=== PATIENT | male | born 1950 | race Caucasian/White ===

== ENCOUNTER 2016-07-13 16:32 | Inpatient (IN) | payer BC ==
[~2016-07-13] VITALS: Ht 162.6 cm; Wt 129.9 kg
--- NOTE | ~2016-07-13 | HEMODYNAMI ---
PATIENT:CLAUDIA CANNON MEDICAL RECORD: [id number] : 54 [id number] ADMISSION DATE: 07/13/16 Generatedon:07/14/201616:20 Patient name: CLAUDIA CANNON Patient #: [id number] SSN: DO B: 1950 Date of study: 07/14/2016 Page: Of Hemodynamic Procedure Report Patient Data Patient Demographics Procedure consent was obtained First Name: CLAUDIA Gender: Male Last Name: KASSANDRA : 1950 [facility] Initial: MONTY Age: 65 year(s) Patient #: [id number] Race: Unknown Additional ID: [id number] Contact details [address]: [address] [place] [address] State: [place] City: [place] Zip code: [address] Past Medical History Allergies Allergen Reaction Date Comments Reported Other allergy 07/14/2016 cipro Admission Admission Data Admission Date: 07/13/2016 Admission Time: 18:54 Room #: [facility] Lab Results Lab Result Date: 07/14/2016 Lab Result Time: 0:00 Biochemistry Name Units Result Min Max BUN mg/dl 17 --(---*)-- 7 18 Creatinine mg/dl 1.1 --(--*-)-- 0.6 1.3 CBC Name Units Result Min Max Hemoglobin g/dl 13.7 --(*---)-- 13.5 17.5 Procedure Procedure Types Cath Procedure Diagnostic Procedure [facility] w/Coronaries PCI Procedure Coronary Stent Initial Miscellaneous Procedures Moderate Sedation up to 30 minutes Procedure Description Procedure Date Procedure Date: 07/14/2016 Procedure Start Time: 15:56 Procedure End Time: 16:18 Procedure Staff Name Function Favio Simeon RT Scrub Lokesh Mas RT Monitor Douglas Troy MD Performing Physician Martha Garrett RN Nurse Estela Butcher RT Monitor Procedure Data Cath Procedure Fluoroscopy Diagnostic fluoroscopy Total fluoroscopy Time: 4.6 time: 4.6 min min Diagnostic fluoroscopy Total fluoroscopy dose: 931 dose: 931 mGy mGy Contrast Material Contrast Material Type Amount (ml) Isovue 300 114 Entry Location Entry Primary Successful Side Size Upsize Upsize Entry Closure Rodriguez ccessful Closure Location (Fr) 1 (Fr) 2 (Fr) Remarks Device Remarks Radial Right 6 Fr Mechanical artery Short Compression Estimated blood loss: 10 ml Diagnostic catheters Device Type Used For End Catheter Placement Cordis RBL-A catheter (NO LV Angiography CHARGE) Cordis RBL-A catheter (NO Left Coronary CHARGE) Angiography Cordis RBL-A catheter (NO Right Coronary CHARGE) Angiography Procedure Complications No complications Procedure Medications Medication Administration Route Dosage Oxygen NC 2 l/min Heparin Flush Bag added to field 2 bags (1000units/500ml NS) Lidocaine 2% added to field 20 Radial Cocktail added to field 1 syringe (Verapomil 2mg/Nitro 400mcg/Heparin 1500units) Fentanyl I.V. 100 mcg Versed I.V. 2 mg 0.9% NaCl I.V. 100 ml/hr Fentanyl I.V. 100 mcg Versed I.V. 2 mg Radial Cocktail I.A. 1 syringe (Verapomil 2mg/Nitro 400mcg/Heparin 1500units) Heparin Bolus I.V. 96992 units Brilinta P.O. 180 mg Hemodynamics Rest HGB: 13.7 (g/dl) Heart Rate: 65 (bpm) Pressure Samples Time Site Value (mmHg) Purpose Heart Use Rate(bpm) 16:00 LV 102/10,22 EDP 67 16:01 LV 111/10,20 Pullback 67 16:01 AO 114/75(92) Pullback 67 Gradients Valve Time Site 1 Site 2 Mean SEP/DFP Peak To Heart Use (mmHg) (sec/min) Peak Rate (mmHg) (bpm) Aortic 16:01 LV AO 0 67 111/10,20 114/75(92) Calculations Valve P-P Mean Valve Index Valve Source Name Gradient Area Flow (cm2) Aortic 0 0 Snapshots Pre Cath Intra NCS Post Cath Vital Signs Time Heart Resp SPO2 NIBP (mmHg) Rhythm Pain Sedation Rate (ipm) (%) Status Level (bpm) 15:43:43 70 16 99 143/95(114) NSR 0 (11) 10(A) , No pain 15:47:55 64 17 99 148/90(121) NSR 0 (11) 10(A) , No pain 15:52:11 64 19 97 140/82(108) NSR 0 (11) 10(A) , No pain 15:56:23 59 17 96 125/74(94) NSR 0 (11) 10(A) , No pain 16:00:20 74 19 93 104/88(99) NSR 0 (11) 9(A) , No pain 16:04:24 65 19 88 97/79(91) NSR 0 (11) 9(A) , No pain 16:08:24 58 16 95 106/81(97) NSR 0 (11) 9(A) , No pain 16:12:28 64 17 96 124/79(94) NSR 0 (11) 9(A) , No pain 16:16:37 59 19 95 140/85(104) NSR 0 (11) 9(A) , No pain Medications Time Medication Route Dose Verified Delivered Reason Note s Effectiveness by by 15:43:37 Oxygen NC 2 l/min Douglas Martha Per physician Woodrow Garrett RN 15:43:44 Heparin Flush added 2 bags Douglas Douglas used for Bag to Woodrow Troy MD procedure (1000units/500ml field NS) 15:43:50 Lidocaine 2% added 20ml Douglas Douglas used for to vial Woodrow Troy MD procedure field 15:43:56 Radial Cocktail added 1 Douglas Douglas used for (Verapomil to syringe Woodrow Troy MD procedure 2mg/Nitro field 400mcg/Hepari 15:56:15 Fentanyl I.V. 100 mcg Douglas Martha for sedation Woodrow Garrett RN 15:56:22 Versed I.V. 2 mg Douglas Martha for sedation Woodrow Garrett RN 15:57:30 0.9% NaCl I.V. 100 Douglas Martha Per physician ml/hr Woodrow Garrett RN 15:59:13 Fentanyl I.V. 100 mcg Douglas Martha for sedation Woodrow Garrett RN 15:59:20 Versed I.V. 2 mg Douglas Martha for sedation Woodrow Garrett RN 15:59:30 Radial Cocktail I.A. 1 Douglas Douglas for (Verapomil syringe Woodrow Troy MD vasodilation 2mg/Nitro 400mcg/Hepari 16:05:44 Heparin Bolus I.V. 76633 Douglas Martha for units Woodrow Garrett RN anticoagulation 16:16:03 Brilinta P.O. 180 mg Douglas Thomas for Woodrow Garrett RN antiplatelet therapy Procedure Log Time Note 15:05:24 Lokesh Mas RT(R) sent for patient. Start room use. 15:15:25 Time tracking: Regular hours 15:15:29 Plan of Care:Hemodynamics will remain stable., Cardiac rhythm will remain stable., Comfort level will be maintained., Respiratory function will remain adequate., Patient/ family verbilizes understanding of procedure., Procedure tolerated without complication., Recovers from procedure without complications.. 15:30:21 Patient received from PCU to CCL 2 Alert and oriented. Tansferred to table in Supine position. 15:30:22 Warm blankets applied, and rinku hugger turned on for patient comfort. 15:30:24 Correct patient and procedure confirmed by team. 15:30:25 Signed procedure consent form obtained from patient. 15:30:26 ECG and BP/O2 sat monitors applied to patient. 15:42:42 Vital chart was started 15:43:37 Oxygen 2 l/min NC was given by Martha Garrett RN; Per physician; 15:43:40 IV Extension Set opened to sterile field. 15:43:44 Heparin Flush Bag (1000units/500ml NS) 2 bags added to field was given by Douglas Troy MD; used for procedure; 15:43:50 Lidocaine 2% 20ml vial added to field was given by Douglas Troy MD; used for procedure; 15:43:56 Radial Cocktail (Verapomil 2mg/Nitro 400mcg/Heparin 1500units) 1 syringe added to field was given by Douglas Troy MD; used for procedure; 15:50:21 Baseline sample Acquired. 15:50:24 Rhythm: sinus rhythm 15:50:27 Full Disclosure recording started 15:50:34 H&P Date Dictated: 07/13/2016 Within 30 days and on chart.. 15:50:35 Pre-procedure instructions explained to patient. 15:50:36 Pre-op teaching completed and patient verbalized understanding. 15:51:22 Family in waiting room. 15:51:35 Patient NPO since Midnight. 15:51:52 Patient allergic to Other allergycipro 15:51:55 Is the patient allergic to Iodine/contrast media? No. 15:52:01 Is patient on blood thinner?No 15:52:03 ACC The patient was administered the following blood thiners within the last 24 hours: ACCAspirin 15:52:06 Patient diabetic? No. 15:52:07 ----Pre-sedation anethsthesia assessment.---- 15:52:10 Previous problem with sedation/anesthesia? No ? 15:52:12 Snore? Yes 15:52:13 Sleep apnea? Yes 15:52:15 Deviated septum? No 15:52:16 Opens mouth fully? Yes 15:52:18 Sticks out tongue? Yes 15:52:20 Airway obstruction? No ? 15:52:23 Dentures? No ? 15:52:26 Pre procedure: right dorsailis pedis pulse 1+ Palpable, but thready & weak; easily obliterated 15:52:30 Modified Garett's test Ulnar < 7 seconds 15:52:33 Patient pain scale 0/10 ?. 15:52:43 IV started by Martha Garrett RN inleft antecubital with a 22 gauge IV catheter with 0.9% NaCl at 10ml/hr. 15:53:10 Lab Result : Hemoglobin 13.7 g/dl 15:53:10 Lab Result : Creatinine 1.1 mg/dl 15:53:10 Lab Result : BUN 17 mg/dl 15:53:14 Lab results completed and on chart. 15:53:17 Right Radial & Right Groin area was prepped with chlora-prep and draped in sterile fashion 15:53:18 Sharps counted by scrub and verified by R.N. 15:53:18 Alarms reviewed by R. N. 15:53:21 --------ALL STOP TIME OUT------ 15:53:22 Final Timeout: patient, procedure, and site verified with staff and physician. All members of the team are in agreement. 15:53:24 Right Radial & Right Groin site verified by team. 15:53:27 Physical assessment completed. ASA score P 2 - A patient with mild systemic disease as per Douglas Troy MD. 15:53:31 Sedation plan: IV Moderate Sedation Versed, Fentanyl 15:53:35 Use device set Radial Dx 15:53:36 Acist Syringe opened to sterile field. 15:53:37 Bag Decanter opened to sterile field. 15:53:37 Medline Cath Pack opened to sterile field. 15:53:38 St Chase 260cm J .035 wire opened to sterile field. 15:53:38 Terumo 6Fr Slender Glidesheath opened to sterile field. 15:53:39 Acist Manifold opened to sterile field. 15:53:39 Acist Hand Control opened to sterile field. 15:55:42 Procedure started. 15:56:15 Fentanyl 100 mcg I.V. was given by Martha Garrett RN; for sedation; 15:56:22 Versed 2 mg I.V. was given by Martha Garrett RN; for sedation; 15:56:26 Local anesthetic to right radial artery with Lidocaine 2% by Douglas Troy MD.INITIAL ACCESS ONLY 15:57:30 0.9% NaCl 100 ml/hr I.V. was given by Martha Garrett RN; Per physician; 15:58:25 A 6 Fr Short sheath was inserted into the Right Radial artery 15:58:38 A Cordis RBL-A catheter (NO CHARGE) was advanced over the wire and used for LV Angiography. 15:59:02 Zero performed for pressure channel P1 15:59:13 Fentanyl 100 mcg I.V. was given by Martha Garrett RN; for sedation; 15:59:20 Versed 2 mg I.V. was given by Martha Garrett RN; for sedation; 15:59:30 Radial Cocktail (Verapomil 2mg/Nitro 400mcg/Heparin 1500units) 1 syringe I.A. was given by Douglas Troy MD; for vasodilation; 16:00:51 Favio Simeon RT(R) was relieved by Etsela Butcher RT(R) as monitoring person 16:01:00 LV gram done using ORELLANA 16:01:16 EF : 60 % 16:01:18 LV hemodynamics recorded. 16:01:20 Injector settings: Ml/sec: 5, Volume: 15, 16:01:45 A Cordis RBL-A catheter (NO CHARGE) was advanced over the wire and used for Left Coronary Angiography. 16:03:00 A Cordis RBL-A catheter (NO CHARGE) was advanced over the wire and used for Right Coronary Angiography. 16:03:09 Catheter removed. 16:03:38 EVRST BasixCompak Inflation Kit opened to sterile field. 16:03:39 Diamond BMW [place] 2 J-tip 300cm 0.014 guide wir opened to sterile field. 16:03:40 Medtronic Launcher 6Fr AR 1.0 guide catheter opened to sterile field. 16:03:47 High Pressure Extension Tubing (Woodrow) opened to sterile field. 16:05:40 6 Fr AR 1.0 guide catheter was inserted over the wire 16:05:44 Heparin Bolus 75107 units I.V. was given by Martha Garrett RN; for anticoagulation; 16:07:51 BMW wire advanced. 16:10:38 Inflation Number: 1 A Rakutentronic Integrity 3.0 X 15 stent was prepped and advanced across the Dist RCA. The stent was deployed at 16 CASSY for 0:16 (min:sec). 16:11:05 Stent catheter was removed intact over wire. 16:11:12 Wire removed. 16:11:13 Guide catheter removed. 16:11:22 Sheath removed intact; hemostasis achieved with Mechanical Compression to the Right Radial artery. 16:11:25 Procedure ended.(Physican Out) 16:11:57 Fluoroscopy time 04.60 minutes. 16:12:01 Fluoroscopy dose: 931 mGy 16:12:01 Flurop Dose total: 931 16:12:06 Contrast amount:Isovue 300 114ml. 16:12:08 Sharps counted by scrub and verified by R.N. 16:12:10 TR band inflated with 12cc of air. 16:12:11 Insertion/operative site no bleeding no hematoma. 16:12:15 Post right radial artery:stable, clean and dry 16:12:17 Post Procedure Pulses reassessed and unchanged 16:12:20 Post-procedure physical assessment completed. ASA score P 2 - A patient with mild systemic disease as per Douglas Troy MD. 16:12:23 Post procedure rhythm: unchanged. 16:12:41 Estimated blood loss: 10 ml 16:12:42 Post procedure instruction explained to patient.Patient verbalizes understanding. 16:12:43 Patient needs reinforcement of post procedure teaching. 16:12:54 Procedure type changed to Cath procedure, Diagnostic procedure, LHC, LHC w/Coronaries, PCI procedure, Coronary Stent Initial, Miscellaneous Procedures, Moderate Sedation up to 30 minutes 16:13:56 Procedure Complication : No complications 16:13:59 See physician's report for complete and final results. 16:14:19 Terumo TR Band Large opened to sterile field. 16:15:11 Tegaderm 2 x 3 opened to sterile field. 16:15:32 20g IV Catheter opened to sterile field. 16:16:03 Brilinta 180 mg P.O. was given by Martha Garrett RN; for antiplatelet therapy; 16:16:10 Cook 21G 4cm Radial Needle opened to sterile field. 16:17:28 Tegaderm 4 x 4 opened to sterile field. 16:18:30 Vital chart was stopped 16:18:30 Procedure and supply charges have been captured, reviewed, submitted and are correct. 16:18:43 Report given to PCU. 16:18:46 Patient transfered to PCU with Bed. 16:18:58 Full Disclosure recording stopped 16:18:58 Procedure ended. 16:19:25 End room use (Document Last) Intervention Summary Intervention Notes Time ActionType Lesion and Equipment Action# Pressure Duration Attributes Used 16:10:38 Place stent Dist RCA Medtronic 1 16 00:16 Integrity 3.0 X 15 stent Device Usage Item Name Manufacture Quantity Catalog Hospital Part Current Minimal Lot# / Number Charge Number Stock Stock Serial# Code IV [facility] 1 59363-04 086742 97946 298435 5 Extension Set Acist Acist 1 34518 527992 040186 219125 20 Syringe Medical Systems Inc Medline Cardinal 1 [id number] 712401 70609 633089 5 Cath Pack Health Bag Microtek 1 108752 34635 358504 5 DecGrand Round Table [employer] Inc. Terumo 6Fr Terumo 1 [id number] 108163 019309 489225 [address] Chase 1 [id number] 778403 501740 310977 30 260cm J .035 wire Acist Hand Acist 1 62313 047489 807187 061061 5 Control Medical Systems Inc Acist Acist 1 17520 938056 334729 182570 5 Manifold Medical Systems Inc Cordis Cardinal 1 [id number] 683769 789366 5 RBL-A Health catheter (NO CHARGE) Merit Merit 1 [id number] 380176 217780 347724 15 BasixCompak Medical Inflation Kit Diamond BMW Diamond 1 [id number] 643131 913802 317045 5 [place] 2 Vascular J-tip 300cm 0.014 guide wir Medtronic Medtronic 1 [id number] 603453 25533 046486 1 Launcher 6Fr AR 1.0 guide catheter High Merit 1 [id number] 129418 96486 011351 10 Pressure Medical Extension Tubing (Troy) Medtronic Medtronic 1 [id number] 051669 610483 463196 3 [id number] Integrity 3.0 X 15 stent Terumo TR Terumo 1 [id number] 502062 146281 118735 40 Band Large Tegaderm 2 3M 1 1624W 605047 96721 666269 5 x 3 20g IV B. Junior 1 [id number] 170380 726251 974911 5 Catheter Cook 21G Cook [facility] 1 [id number] 150105 242331 859767 5 4cm Radial Needle Tegaderm 4 3M 1 1626W 808964 264941 973327 5 x 4 Signature Audit [place] Stage Time Signature Unsigned Intra-Procedure 07/14/2016 Estela 4:20:37 PM Counts RT(R) Signatures Monitor : Lokesh Mas RT Signature : Date : Time : Monitor : Estela Signature : Counts RT Date : Time : [facility] [address] [place] [address]
[2016-07-13 18:26] LABS: BASOPHILS 0.4 % (0.0-2.0); EOSINOPHILS 3.2 % (0-7); HEMATOCRIT 44.8 % (42.0-54.0); HEMOGLOBIN 14.9 g/dL (13.5-17.5); IMMATURE GRANULOCYTES 0.1 % (0-5); LYMPHOCYTES 12.8 % (15-50); MCH 30.7 pg (26.0-34.0); MCHC 33.3 g/dL (31.0-37.0); MCV 92.2 fL (80.0-100.0); MEAN PLATELET VOLUME 10.3 fL (7.4-10.4); MONOCYTES 8.2 % (2-11); NEUTROPHILS 75.3 % (40-80); PLATELET COUNT 182 10x3/uL (130-400); RBC 4.86 10x6/uL (4.20-6.10); RDW 13.2 % (11.5-14.5); WBC 7.1 10x3/uL (4.8-10.8)
[2016-07-13 18:33] LABS: ALBUMIN 3.8 g/dL (3.4-5.0); ALKALINE PHOSPHATASE 84 U/L (46-116); ALT (SGPT) 30 U/L (10-68); CALC OSMOLALITY 281 mosm/kg (275-300); CALCIUM 8.9 mg/dL (8.5-10.1); CARBON DIOXIDE 30.2 mmol/L (21.0-32.0); CHLORIDE - SERUM 104 mmol/L (98-107); CREATININE - SERUM 1.1 mg/dL (0.6-1.3); GLUCOSE 97 mg/dL (74-106); POTASSIUM - SERUM 4.2 mmol/L (3.5-5.1); PROTEIN - SERUM 7.5 g/dL (6.4-8.2); SODIUM 141 mmol/L (136-145); UREA NITROGEN 16 mg/dL (7-18); eGFR NON AFRICAN AMERICAN 72 mL/min (90-120)
[2016-07-13 18:45] LABS: CHOL - HDL RATIO 6.2 ratio (2.3-4.9); CHOLESTEROL, TOTAL 246 mg/dL (0-200); CREATINE KINASE 277 UL (21-232); HDL CHOLESTEROL 40 mg/dL (32-96); LDL CHOLESTEROL 129 mg/dL (0-100); LDL-HDL RATIO 3.2 ratio (1.5-3.5); TRIGLYCERIDE 387 mg/dL (30-200); TROPONIN-I 0.035 ng/mL (0.000-0.060)
[2016-07-13 20:00] VITALS: BP 138/86
--- NOTE | 2016-07-13 20:25 | NUR ---
RECEIVED PT TO ROOM 2133 ALERT O X3. REVIEWED HOME MEDS WITH PT AND UPDATED MED REC FOR DR KOWALSKI TO SEE. ASSESS AND HISTORY COMPLETE. PT DENIES CP OR SOB AT THIS TIME. TELE SR. VSS. ORIENTED TO ROOM AND CALL LIGHT. WILL CONT TO MONITOR.
[2016-07-13] MEDS ORDERED: LISINOPRIL10 MG PO (20:26)
[2016-07-13] MEDS ORDERED: ZOCOR20 MG PO (20:26)
[2016-07-13] MEDS ORDERED: BAYER CHEWABLE81 MG PO (20:27)
[2016-07-13] MEDS ORDERED: PAXIL20 MG PO (20:27)
[2016-07-13 20:28] VITALS: BP 138/86; Ht 162.6 cm; Wt 129.9 kg
[2016-07-14] VITALS: BP 142/92
--- NOTE | 2016-07-14 00:38 | NUR ---
HEADLIGHT ASSEMBLER AT BEDSIDE FOR VS, NEEDS ADDRESSED. CALL LIGHT IN REACH. WILL CONT TO MONITOR.
[2016-07-14 04:15] VITALS: BP 136/80
--- NOTE | 2016-07-14 06:30 | NUR ---
RESTING WELL, WATCHING TV. DENIES NEEDS, CONT TO MONITOR.
--- NOTE | 2016-07-14 08:02 | NUR ---
0730-NPO STATUS, PATIENT STATES THAT DR ASENCIO SAW HIM THIS AM AND STATES HE CAN HAVE A LIGHT BREAKFAST, THEN NPO FOR HEART CATH THIS AFTERNOON. ON HEART MONITOR SHOWING SR, HR 54. ON ROOM AIR. RIGHT WRIST SEEN WITH SALINE LOCK. DENIES ANY CHEST PAIN OR DISCOMFORT. WILL COTNINUE TO MONITOR.
[2016-07-14 08:27] VITALS: BP 127/79
[2016-07-14 08:29] LABS: BASOPHILS 0.7 % (0.0-2.0); EOSINOPHILS 5.8 % (0-7); HEMATOCRIT 41.9 % (42.0-54.0); HEMOGLOBIN 13.7 g/dL (13.5-17.5); LYMPHOCYTES 28.6 % (15-50); MCH 30.6 pg (26.0-34.0); MCHC 32.7 g/dL (31.0-37.0); MCV 93.7 fL (80.0-100.0); MEAN PLATELET VOLUME 10.8 fL (7.4-10.4); MONOCYTES 12.1 % (2-11); NEUTROPHILS 52.8 % (40-80); PLATELET COUNT 166 10x3/uL (130-400); RBC 4.47 10x6/uL (4.20-6.10); RDW 13.6 % (11.5-14.5); WBC 5.5 10x3/uL (4.8-10.8)
[2016-07-14 08:34] LABS: CALCIUM 8.8 mg/dL (8.5-10.1); CARBON DIOXIDE 25.6 mmol/L (21.0-32.0); CREATININE - SERUM 1.1 mg/dL (0.6-1.3); POTASSIUM - SERUM 4.6 mmol/L (3.5-5.1)
--- NOTE | 2016-07-14 10:28 | NUR ---
PATIENT IS SLEEPING ON LEFT SIDE, RESP ARE EVEN AND NON LABORED. WILL GIVE LOVENOX AND PEPCID WHEN HE IS AWAKE (STATES HE DID NOT SLEEP LAST NIGHT).
[2016-07-14 12:02] VITALS: BP 120/77
--- NOTE | 2016-07-14 12:34 | NUR ---
STILL NPO FOR HEART CATH. WILL CONTINUE TO MONITOR.
--- NOTE | 2016-07-14 13:22 | NUR ---
PRE-OP MEDS GIVEN ORDERED, PLACED ON 2L PER NC.
--- NOTE | 2016-07-14 13:24 | HP ---
PATIENT: CLAUDIA CANNON MEDICAL RECORD: [id number] ACCOUNT: [id number] LOCATION:[address] : [birth year] ADMISSION DATE: 07/13/16 HISTORY AND PHYSICAL EXAMINATION Admission History and Physical DATE OF ADMISSION: 07/13/2016 CHIEF COMPLAINT: Chest pain. HISTORY OF PRESENT ILLNESS: This is a 65-year-old white male with a known history of coronary artery disease with [address] Abdul in 2011, who had retired recently and just bought a new [place] and was out clearing a piece property today and states that he "overdid it." He really did not have any problems while he was using the saw, but after he stopped and sat down, he felt this chest tightened. It lasted about a minute and then went away, he walked to the car and the symptoms came back only to go away again, he was able to drive a couple of minutes from the lot that he was clearing back to his house. He started having symptoms for the third time. He also experienced nausea with this and probable radiation to arms, but it really hard to tell since that new [place] was causing a lot of vibration in his arms. He decided to come to the Emergency Room where he was examined. His chest x-ray was okay. His CK was a little high at 277. The CK-MB was okay at 4.1, and troponin was 0.035. His lipid numbers were high, but with his symptoms and his past history, he is admitted and will be seen by cardiology. PAST MEDICAL AND SURGICAL HISTORY: Hypertension, hyperlipidemia, sleep apnea on CPAP. He also has a history of some depression and kidney stone. PAST SURGICAL HISTORY: He had 2 kidney stones taken via basket procedure, he had 1 cardiac stent placed by Dr. Abdul in 2011. HOME MEDICATIONS: Include lisinopril 10 mg once a day, Paxil 20 mg once a day, aspirin 81 mg daily, simvastatin 20 mg, he states he was supposed to take 1-1/2 pills for a total of 30, but admits that he has only been taking the 20. SOCIAL HISTORY: He is a retired division engineer. He lives with his . HABITS: Never smoked, occasional alcohol use, no illicit drugs. FAMILY HISTORY: Father at 49 of a heart attack. A brother had an OR at age 55. ALLERGIES: CIPRO. REVIEW OF SYSTEMS: GENERAL: No major weight changes. HEENT: No particular sinus or allergy problems. RESPIRATORY: No history of asthma or emphysema. CARDIAC: See above history. GASTROINTESTINAL: No problems there. He just had a colonoscopy in the last few months and it was okay. GENITOURINARY: No significant problems there. MUSCULOSKELETAL: No particular joint aches and pains. HISTORY AND PHYSICAL [id number] CLAUDIA CANNON NEUROLOGIC: No seizures or migraine headaches. PSYCHIATRIC: He has some depression. PHYSICAL EXAMINATION: VITAL SIGNS: He is afebrile, blood pressure 141/79, respirations 12, O2 sat 98%, heart rate 67. He is awake and alert, does not appear in acute distress at this time. HEENT: Grossly within normal limits. NECK: Supple. No JVD or bruit. HEART: Regular rate and rhythm without murmur. LUNGS: Clear. ABDOMEN: Soft, flat, nontender. EXTREMITIES: No edema. LABORATORY DATA: EKG, heart rate 78 with normal sinus rhythm, left axis deviation and inferior infarct, age undetermined, anterior infarct, age undetermined. CBC is normal. Basic metabolic panel is normal. LFTs were all okay. CK 277, CK-MB 4.0. Troponin 0.035, total cholesterol 246, triglycerides 387, LDL 129 and HDL 40. ASSESSMENT: 1. Chest pain in a patient with known history of coronary artery disease. 2. Hyperlipidemia. 3. Hypertension. 4. Sleep apnea. PLAN: We will admit. We will get serial cardiac enzymes, consult cardiology. Other tests and procedures as warranted. TRANSINT:[id number] Voice Confirmation ID: [id number] DOCUMENT ID: [id number] CLAUDIA KOWALSKI MD at 1324 CC: [id number] DICTATION DATE: 07/13/162105 TESTING ENGINEER: 07/14/16 0002 ADM IN [facility] [address] [place] [address]
--- NOTE | 2016-07-14 16:37 | NUR ---
RETURNS TO ROOM FROM POST CARDIAC CATH. TR BAND TO RIGHT WRIST. ON 2L PER NC. HOB UP 30 DEGREES, DENIES PAIN. WILL CONTINUE TO MONITOR.
--- NOTE | 2016-07-14 18:25 | NUR ---
5 CC OF AIR REMOVED FROM TR BAND, WILL CONTINUE TO MONITOR AND SLOWLY RELEASE AIR. NO BLEEDING SEEN.
[2016-07-14 21:06] VITALS: BP 125/75
--- NOTE | 2016-07-14 21:11 | NUR ---
HS MEDS GIVEN WITH FRESH ICE WATER, AIR COMPLETELY REMOVED FROM RIGHT WRIST TR BAND. INFORMED PT THAT I WILL COME BACK SHORTLY TO TAKE TR BAND OFF AND PLACE DRSG OVER INSERTION SITE. PT DENIES PAIN OR NEEDS AT THIS TIME, BED LOW, CL IN REACH.
--- NOTE | 2016-07-14 22:01 | NUR ---
TR BAND AND WRIST SPLINT REMOVED, PLACED 2X2 AND TEGADERM OVER INSERTION SITE, NO BLEEDING, SWELLING OR HEMATOMA NOTED. IFNORMED PT TO BE SURE TO NOTIFY STAFF IF HE NOTICES ANY ACTIVE BLEEDING OR SWELLING AND TO TRY TO RESTRICT A LOT OF MOVEMENT OF THE THE RIGHT WRIST. PT STATED UNDERSTANDING. RECLINER CHAIR, BLANKET AND PILLOW TAKEN TO ROOM FOR PTS . NO OTHER NEEDS REQUESTED AT THIS TIME, BED LOW, CL IN REACH.
--- NOTE | 2016-07-14 23:30 | NUR ---
BATTING MACHINE OPERATOR AT BEDSIDE FOR VS. NEEDS ADDRESSED AT THIS TIME. CALL LIGHT IN REACH. GIGI CONT TO MONITOR.
[2016-07-15 01:50] VITALS: BP 112/71
[2016-07-15 08:03] VITALS: BP 95/62
--- NOTE | 2016-07-15 08:08 | NUR ---
ASSESSEMENT DONE. PT A/O. PT HAD HEART CATH YESTERDAY THROUGH RIGHT WRIST. SITE WNL, NO S/S OF HEMATOMA. PT DENIES PAIN AT SITE. WANTS TO GO HOME. SPOUSE IN ROOM. DENIES NEEDS. CALL LIGHT WITH IN REACH. WILL CONT. TO MONITOR.
--- NOTE | 2016-07-15 09:34 | NUR ---
RESTS WITH EYES CLOSED. AT BS. CALL LIGHT IN REACH. WILL MONITOR NEEDS.
[2016-07-15 11:59] VITALS: BP 93/59
[2016-07-15] MEDS ORDERED: BRILINTA90 MG PO (13:33)
--- NOTE | 2016-07-15 14:30 | NUR ---
Patient Name: CLAUDIA CANNON Admission Status: ER Accout number: [id number] Admission Date: 07-14-2016 : 1950 Admission Diagnosis: Attending: MARGO Current LOS: 1 Anticipated DC Date: 07-15-2016 Planned Disposition: Home Primary Insurance: [email or web address] OUT OF STATE Discharge Planning Comments: * Is the patient Alert and Oriented? Yes 0 * How many steps to enter\exit or inside your home? 2 0 * PCP DR. KOWALSKI 0 * Pharmacy [facility]. 0 * Preadmission Environment Home with Family 0 * ADLs Independent 0 * Equipment CPAP 0 * Other Equipment NO MEDICAL EQUIPMENT PROVIDER PREFERENCE 0 * List name and contact numbers for known caregivers / representatives who currently or will assist patient after discharge: KIYA CANNON, SPOUSE, 0 * Community resources currently utilized None 0 * Please name any agencies selected above. NONE 0 * Additional services required to return to the preadmission environment? No 0 * Can the patient safely return to the preadmission environment? Yes 0 * Has this patient been hospitalized within the prior 30 days at any hospital? No 0 CM MET WITH PT IN ROOM TO DISCUSS DISCHARGE PLANNING AND NEEDS. PT REPORTS LIVING AT HOME INDEPENDENTLY WITH HIS SPOUSE. PT HAS A CPAP WITH NO MEDICAL EQUIPMENT PROVIDER PREFERENCE. PT HAS NO OUTSIDE SERVICES ASSISTING IN THE HOME. CM DISCUSSED AVAILABILITY OF HOME HEALTH, REHAB SERVICES AND MEDICAL EQUIPMENT. PT DENIES DISCHARGE NEEDS, REPORTS HIS IS HERE TO PICK HIM UP FOR DISCHARGE HOME TODAY. Associate Dean: Markus Duran
--- NOTE | 2016-07-15 15:20 | NUR ---
D/C INSTRUCTIONS GIVEN TO PT. RX FOR BRILINTA GIVEN TO PT. IV AND TELEMETRY REMOVED. PT D/C HOME VIA PRIVATE VEHICLE. DECLINES W/C RIDE OUT. PT WISHES TO WALK. SPOUSE PRESENT.
--- NOTE | 2016-07-28 08:17 | OP ---
PATIENT NAME: REJI CANNON MEDICAL RECORD: [id number] :52 LOCATION:D.M2 D.2133 ADMISSION DATE:07/13/16 SURGEON: STEVE ASENCIO M.D. DATE OF OPERATION: 07/14/2016 REFERRING PHYSICIAN: Reji Paris MD. PROCEDURES PERFORMED: 1. Selective coronary angiography. 2. Left heart catheterization with ventriculogram. 3. PTCA and stent placement to the right coronary. INDICATION: A 65-year-old gentleman presents with unstable angina. EQUIPMENT USED: Diagnostic 5-Moldovan JL4, Aman right, pigtail catheter. INTERVENTION: A 6-Moldovan AR1 guide, BMW guide wire, 3.0 x 15 mm Integrity stent. TECHNIQUE: A 6-Moldovan sheath was inserted in retrograde fashion in the right radial artery. Next, selective coronary angiography was performed in standard 5-Moldovan Jason catheter. Left heart catheterization was performed using a Jason catheter as well. CORONARY ANATOMY: 1. Left main: Left main trunk is moderate in caliber. It gives rise to the LAD and circumflex. There is no obstruction. 2. LAD: This is a moderate caliber vessel, which terminates proximal apex. It has mild irregularities throughout its course, but nothing worse than 20%. 3. Circumflex: This vessel is moderate in caliber. The high lateral branch has been stented. The stent is widely patent. There is no evidence of restenosis. 4. Right coronary artery: This vessel is quite large and dominant. The posterolateral branch in PDA encompasses the apex. Before the bifurcation point, there is an ulcerated 95% stenosis. 5. Left ventricle: Left ventricle is normal in size and function. No wall motion abnormalities are seen. Its ejection is 60%. DESCRIPTION OF INTERVENTION: A 100 units per kilogram of heparin was infused. A 6-Moldovan AR1 guide was advanced and engaged in the right coronary artery. Next, a BMW guide wire was placed in the distal right coronary. 3.0 x 15 mm Integrity stent was placed across the stenosis and deployed at 16 atmospheres. Injection reveals stent to be widely patent with 0% residual stenosis. There is marked improvement in distal flow. At this point, the wire and guide were removed. IMPRESSION: Successful percutaneous transluminal coronary angioplasty and stent of right coronary with 0% residual stenosis. TRANSINT:[id number] Voice Confirmation ID: [id number] DOCUMENT ID: [id number] OPERATIVE REPORT [id number] REJI CANNON,STEVE Le M.D. at 0817 CC: [id number] DICTATION DATE: 07/14/16 1618 ADDICTION SOCIAL WORKER: 07/14/161920 DIS IN 07/14/16 [place] [id number] [place] [id number]
== END 2016-07-14 15:20 | disposition home or self-care (01) | DRG 249 ==
LOC: OBSVTIME → D.ER 16:32 → D.M2 18:54 → OBSVTIME 18:54 → D.ER 18:54 → D.M2 07-14 15:20
PROVIDERS: Emergency Medicine; Internal Medicine Cardiovascular Disease; ADMIT Family Medicine
PROC: B2111ZZ Fluoroscopy of Multiple Coronary Arteries using Low Osmolar Contrast (ICD-10-PCS; 2016-07-14)
PROC: B2151ZZ Fluoroscopy of Left Heart using Low Osmolar Contrast (ICD-10-PCS; 2016-07-14)
PROC: 02703DZ Dilation of Coronary Artery, One Artery with Intraluminal Device, Percutaneous Approach (ICD-10-PCS; principal; 2016-07-14 15:00)
PROC: 4A023N7 Measurement of Cardiac Sampling and Pressure, Left Heart, Percutaneous Approach (ICD-10-PCS; 2016-07-14 15:00)
DX: I25.110 Atherosclerotic heart disease of native coronary artery with unstable angina pectoris (principal); I10 Essential (primary) hypertension; E78.5 Hyperlipidemia, unspecified; G47.30 Sleep apnea, unspecified

== ENCOUNTER → 2019-12-12 | Emergency (ER) | payer MEDICARE ==
[~2019-12-12] VITALS: Ht 193 cm; Wt 127.3 kg
[~2019-12-12] MED LIST: BAYER CHEWABLE81 MG PO; BRILINTA90 MG PO; CLEOCIN HCL300 MG PO; HYDROCODON-ACE1 EA10 PO; LISINOPRIL10 MG PO; PAXIL20 MG PO; ZOCOR20 MG PO
[2019-12-12 18:53] VITALS: BP 154/94; Ht 193 cm; Wt 127.3 kg
== END ==
LOC: D.ER 18:47
DX: S61.412A Laceration without foreign body of left hand, initial encounter (principal); S00.93XA Contusion of unspecified part of head, initial encounter; I10 Essential (primary) hypertension; W01.198A Fall on same level from slipping, tripping and stumbling with subsequent striking against other object, initial encounter; Y93.9 Activity, unspecified; Y92.9 Unspecified place or not applicable